=== PATIENT | male | born 1995 | race Caucasian/White ===

== ENCOUNTER 2017-01-06 02:03 | Emergency (ER) ==
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
[2017-01-06] MEDS ORDERED: FLEXERIL PO ONE (02:58)
[2017-01-06] MEDS ORDERED: MOTRIN PO ONE (02:58)
[2017-01-06 03:18] VITALS: BP 132/70
--- NOTE | 2017-01-06 09:20 | Diag Imaging Result Document ---
PROCEDURE NAME: THORAX/ABDOMEN/PELVIS - 01/06/2017 CT CHEST, ABDOMEN, AND PELVIS WITH IV CONTRAST: COMPARISON: None available. FINDINGS: CHEST: There is a punctate 3 mm noncalcified nodule at the posterior right lung base on image 73 of series 3. Statistically, it is very likely a tiny noncalcified granuloma. The lungs are clear otherwise. There is no evidence of airspace consolidation or pulmonary contusion. There are no pleural fluid collections and there is no pneumothorax. No abnormal mediastinal fluid collections are identified. The heart is essentially unremarkable. There is residual thymic tissue at the anterior superior mediastinum. There is no evidence of great vessel injury. The bony structures of the thorax are grossly intact. ABDOMEN/PELVIS: There is no evidence of solid organ injury. Specifically, the liver, gallbladder, spleen, pancreas, adrenal glands, kidneys, appendix, urinary bladder, and the GI tract are essentially unremarkable. There is a fair amount of stool throughout the colon. No focal inflammatory changes, free abdominal gas, or free fluid is identified. The bony structures of the abdomen and pelvis are grossly intact. IMPRESSION: 1. No evidence of acute pathology involving the chest, abdomen, or pelvis. 2. Other incidental/nonacute findings detailed above.
--- NOTE | 2017-01-06 09:47 | Diag Imaging Result Document ---
PROCEDURE NAME: HEAD/C-SPINE W/O CONTRAST - 01/06/2017 COMPARISON: None available. FINDINGS: HEAD: There is no discrete intracranial mass, mass effect, or intracranial hemorrhage. There is no evidence of hydrocephalus. There is no evidence of acute infarct. Surrounding soft tissues are grossly unremarkable. Calvaria is intact. C-SPINE: There is no evidence of fracture, subluxation, or intrinsic osseous lesion. The central canal is widely patent. Surrounding soft tissues are grossly unremarkable. IMPRESSION: 1. No evidence of acute intracranial pathology. 2. No evidence of fracture or other definite acute C-spine injury.
== END 2017-01-06 03:18 | disposition home or self-care (01) ==
LOC: EDBD → ED 02:03
DX: S50.312A Abrasion of left elbow, initial encounter (principal); M25.522 Pain in left elbow; R55 Syncope and collapse; V59.9XXA Occupant (driver) (passenger) of pick-up truck or van injured in unspecified traffic accident, initial encounter
CPT/HCPCS: 70450; 71260; 72125; 74177; Q9967